=== PATIENT | male | born 1930 | race Caucasian/White ===

== ENCOUNTER 2018-02-22 21:36 | Inpatient (IN) | payer OTHER ==
[~2018-02-22] VITALS: Ht 167.6 cm; Wt 64.4 kg
[~2018-02-22 21:36] MED LIST: ALBMDI INH; ASPI-1155 PO; CLOP75TA32 PO; FERR159T2 PO; LEVO137T2 PO; NIFE60TA PO; OMEG1CAP48 PO; PRIM50TA27 PO; PRO40 PO; SPIRIVA INH
[2018-02-22 21:37] VITALS: BP_SYST 144
[2018-02-22] MEDS ORDERED: BLOO-1091 MC (21:57)
[2018-02-22] MEDS ORDERED: LIP10 PO (21:57)
[2018-02-22] MEDS ORDERED: IPRA0.2S6 INH (21:57)
[2018-02-22] MEDS ORDERED: ESCI10TA PO (21:57)
[2018-02-22] MEDS ORDERED: FLUT1DIS5 INH (21:57)
[2018-02-22] MEDS ORDERED: LEVO112T5 PO (21:57)
[2018-02-22] MEDS ORDERED: CARB-61 PO (21:57)
[2018-02-22] MEDS ORDERED: SPIRIVA INH (21:57)
[2018-02-22] MEDS ORDERED: IPRATROPIUM/ALBUTEROL SULFATE 3 ML AMPUL.NEB INH ONE (22:00)
[2018-02-22] MEDS ORDERED: NACL 0.9% 1,000 ML IV ONE ×2 (22:00→23:15)
[2018-02-22] MEDS ORDERED: methylPREDNISolone SOD SUCC/PF 62.5 MG/ML VIAL IVP ONE (22:00)
[2018-02-22] MEDS ORDERED: ACETAMINOPHEN 500 MG TABLET PO ONE (22:15)
[2018-02-22 22:24] LABS: BASOPHILS # (AUTO) 0.1 K/uL (0.0-0.2); BASOPHILS % (AUTO) 0.8 % (0.0-2.0); EOSINOPHILS # (AUTO) 0.7 K/uL (0.0-0.4); EOSINOPHILS % (AUTO) 9.6 % (0.0-4.0); HEMATOCRIT 34.9 % (36-54); HEMOGLOBIN 11.9 g/dL (14.0-18.0); LYMPHOCYTES # (AUTO) 1.6 K/uL (1.0-5.5); LYMPHOCYTES % (AUTO) 21.5 % (20.5-51.5); MEAN CORPUSCULAR HEMOGLOBIN 30 pg (27-31); MEAN CORPUSCULAR HGB CONC 34 % (32-36); MEAN CORPUSCULAR VOLUME 88 fL (79.0-98.0); MONOCYTES # (AUTO) 0.9 K/uL (0.0-1.0); MONOCYTES % (AUTO) 12.7 % (1.7-9.3); NEUTROPHILS % (AUTO) 55.4 % (40.0-70.0); PLATELET COUNT (AUTO) 293 K/uL (130-430); RED BLOOD CELL COUNT(AUTO) 3.99 MIL/uL (4.2-6.2); RED CELL DISTRIBUTION WIDTH 12.8 % (9.0-15.0); WHITE BLOOD COUNT (AUTO) 7.3 K/uL (4.8-10.8)
[2018-02-22 22:51] LABS: ANION GAP 10 (5-15); CALCIUM 8.5 mg/dL (8.4-11.0); CHLORIDE 106 mmol/L (98-107); CREATININE 1.76 mg/dL (0.55-1.30); GLUCOSE 124 mg/dL (70-99); POTASSIUM 4.8 mmol/L (3.5-5.1); SODIUM SERUM 139 mmol/L (136-145); UREA NITROGEN, BLOOD 26 mg/dL (8-21)
[2018-02-22 22:57] LABS: ALANINE AMINOTRANSFERASE 18 U/L (12-78); ALBUMIN 2.8 g/dL (3.4-4.8); ASPARTATE AMINOTRANSFERASE 19 U/L (10-37); TOTAL BILIRUBIN 0.3 mg/dL (0.0-1.0)
[2018-02-22 22:57] LABS: BILIRUBIN,URINE NEGATIVE (NEGATIVE); BLOOD, URINE NEGATIVE (NEGATIVE); CLARITY/URINE CLEAR (CLEAR); COLOR,URINE YELLOW (YELLOW); GLUCOSE,URINE NEGATIVE (NEGATIVE); KETONES,URINE NEGATIVE (NEGATIVE); LEUKOCYTE ESTERASE ,URINE NEGATIVE (NEGATIVE); NITRITE, URINE NEGATIVE (NEGATIVE); PROTEIN URINE TRACE (NEGATIVE); UROBILINOGEN,URINE 0.2 (0.2-1.0)
[2018-02-22] MEDS ORDERED: PROMETHAZINE 6.25 MG/ CODEINE 10 MG/ 5 ML PO ONE (23:15)
[2018-02-23 00:42] VITALS: BP_SYST 114
[2018-02-23 01:35] VITALS: BP_SYST 102
[2018-02-23] MEDS: methylPREDNISolone SOD SUCC/PF 62.5 MG/ML VIAL IVP SCH ×3 (05:28→21:32)
[2018-02-23] MEDS: IPRATROPIUM BROM 0.5 MG/2.5 ML VIAL.NEB (ATROVENT) INH PRN ×2 (07:26→10:31)
[2018-02-23] MEDS: ALBUTEROL SULFATE 0.083% 2.5 MG/3 ML VIAL.NEB INH PRN ×2 (07:26→10:31)
[2018-02-23 08:00] VITALS: BP_SYST 142
[2018-02-23] MEDS ORDERED: ESCITALOPRAM OXALATE 10 MG TABLET PO SCH (09:00)
[2018-02-23] MEDS ORDERED: FLUTICASONE 500 mCg/SALMETEROL 50 mCg DISKUS W.DEV INH SCH (09:00)
[2018-02-23] MEDS ORDERED: DEXTROSE 50% JECT 50 ML DISP.SYRIN IVP PRN (09:15)
[2018-02-23] MEDS: ATORVASTATIN 10 MG TABLET PO SCH (09:34)
[2018-02-23] MEDS: PANTOPRAZOLE SODIUM 40 MG TAB PO SCH (09:35)
[2018-02-23] MEDS: CLOPIDOGREL BISULFATE 75 MG TABLET PO SCH (09:35)
[2018-02-23] MEDS: NIFEDIPINE 60 MG TABLET.SA (PROCARDIA XL 60 MG) PO SCH (09:35)
[2018-02-23] MEDS: INSULIN REGULAR, HUMAN 100 UNITS/ML, 10 ML VIAL (novoLIN R) SUBCUT PRN ×4 (09:42→23:15)
[2018-02-23] MEDS ORDERED: CITALOPRAM HYDROBROMIDE 20 MG TABLET PO ONE (10:15)
[2018-02-23] MEDS ORDERED: FLUTICASONE/VILANTEROL 1 EACH BLST.W.DEV INH ONE (10:15)
[2018-02-23] MEDS ORDERED: LEVOTHYROXINE SODIUM 0.112 MG TABLET PO ONE (10:30)
[2018-02-23] MEDS: CARBIDOPA/LEVODOPA 25/100 MG TABLET PO SCH ×2 (11:05→21:30)
[2018-02-23 12:00] VITALS: BP_SYST 149
[2018-02-23] MEDS: IPRATROPIUM/ALBUTEROL SULFATE 3 ML AMPUL.NEB INH SCH ×3 (15:13→23:00)
[2018-02-23 16:00] VITALS: BP_SYST 147
[2018-02-23 19:15] VITALS: BP_SYST 155
[2018-02-24 00:35] VITALS: BP_SYST 138
[2018-02-24] MEDS: IPRATROPIUM/ALBUTEROL SULFATE 3 ML AMPUL.NEB INH SCH ×6 (03:00→23:27)
[2018-02-24] MEDS: methylPREDNISolone SOD SUCC/PF 62.5 MG/ML VIAL IVP SCH ×3 (05:57→21:17)
[2018-02-24] MEDS: LEVOTHYROXINE SODIUM 0.112 MG TABLET PO SCH (05:59)
[2018-02-24] MEDS: INSULIN REGULAR, HUMAN 100 UNITS/ML, 10 ML VIAL (novoLIN R) SUBCUT PRN ×3 (06:01→17:36)
[2018-02-24 06:53] LABS: BASOPHILS % (AUTO) 0.3 % (0.0-2.0); EOSINOPHILS % (AUTO) 0.2 % (0.0-4.0); HEMATOCRIT 36.8 % (36-54); HEMOGLOBIN 12.4 g/dL (14.0-18.0); LYMPHOCYTES # (AUTO) 0.6 K/uL (1.0-5.5); LYMPHOCYTES % (AUTO) 5.8 % (20.5-51.5); MEAN CORPUSCULAR HEMOGLOBIN 30 pg (27-31); MEAN CORPUSCULAR HGB CONC 34 % (32-36); MEAN CORPUSCULAR VOLUME 90 fL (79.0-98.0); MONOCYTES # (AUTO) 0.4 K/uL (0.0-1.0); MONOCYTES % (AUTO) 4.2 % (1.7-9.3); NEUTROPHILS # (AUTO) 8.8 K/uL (1.8-7.7); NEUTROPHILS % (AUTO) 89.5 % (40.0-70.0); PLATELET COUNT (AUTO) 308 K/uL (130-430); RED BLOOD CELL COUNT(AUTO) 4.09 MIL/uL (4.2-6.2); RED CELL DISTRIBUTION WIDTH 12.9 % (9.0-15.0); WHITE BLOOD COUNT (AUTO) 9.8 K/uL (4.8-10.8)
[2018-02-24 07:04] LABS: ANION GAP 10 (5-15); CALCIUM 8.8 mg/dL (8.4-11.0); CHLORIDE 109 mmol/L (98-107); CREATININE 1.77 mg/dL (0.55-1.30); GLUCOSE 187 mg/dL (70-99); POTASSIUM 4.9 mmol/L (3.5-5.1); SODIUM SERUM 145 mmol/L (136-145); UREA NITROGEN, BLOOD 29 mg/dL (8-21)
[2018-02-24 08:00] VITALS: BP_SYST 154
[2018-02-24] MEDS: FLUTICASONE/VILANTEROL 1 EACH BLST.W.DEV INH SCH (09:11)
[2018-02-24] MEDS: PANTOPRAZOLE SODIUM 40 MG TAB PO SCH (09:12)
[2018-02-24] MEDS: CLOPIDOGREL BISULFATE 75 MG TABLET PO SCH (09:12)
[2018-02-24] MEDS: CITALOPRAM HYDROBROMIDE 20 MG TABLET PO SCH (09:12)
[2018-02-24] MEDS: ATORVASTATIN 10 MG TABLET PO SCH (09:12)
[2018-02-24] MEDS: CARBIDOPA/LEVODOPA 25/100 MG TABLET PO SCH ×2 (09:12→21:17)
[2018-02-24] MEDS: NIFEDIPINE 60 MG TABLET.SA (PROCARDIA XL 60 MG) PO SCH (09:12)
[2018-02-24 12:12] VITALS: BP_SYST 168
[2018-02-24] MEDS: cloNIDine HCL 0.1 MG TABLET PO PRN (12:38)
[2018-02-24 16:36] VITALS: BP_SYST 157
[2018-02-24 20:00] VITALS: BP_SYST 154
[2018-02-24] MEDS ORDERED: LEVOFLOXACIN 500 MG/D5W 100 ML IV SCH (20:00)
[2018-02-25 00:51] VITALS: BP_SYST 147
[2018-02-25] MEDS: INSULIN REGULAR, HUMAN 100 UNITS/ML, 10 ML VIAL (novoLIN R) SUBCUT PRN ×4 (06:12→23:47)
[2018-02-25] MEDS: methylPREDNISolone SOD SUCC/PF 62.5 MG/ML VIAL IVP SCH ×3 (06:13→21:30)
[2018-02-25] MEDS: LEVOTHYROXINE SODIUM 0.112 MG TABLET PO SCH (06:15)
[2018-02-25] MEDS: IPRATROPIUM/ALBUTEROL SULFATE 3 ML AMPUL.NEB INH SCH ×5 (07:00→23:00)
[2018-02-25 08:00] VITALS: BP_SYST 159
[2018-02-25] MEDS: FLUTICASONE/VILANTEROL 1 EACH BLST.W.DEV INH SCH (08:40)
[2018-02-25] MEDS: ATORVASTATIN 10 MG TABLET PO SCH (08:40)
[2018-02-25] MEDS: CARBIDOPA/LEVODOPA 25/100 MG TABLET PO SCH ×2 (08:41→21:30)
[2018-02-25] MEDS: NIFEDIPINE 60 MG TABLET.SA (PROCARDIA XL 60 MG) PO SCH (08:41)
[2018-02-25] MEDS: PANTOPRAZOLE SODIUM 40 MG TAB PO SCH (08:42)
[2018-02-25] MEDS: CLOPIDOGREL BISULFATE 75 MG TABLET PO SCH (08:42)
[2018-02-25] MEDS: CITALOPRAM HYDROBROMIDE 20 MG TABLET PO SCH (08:42)
[2018-02-25 11:02] VITALS: BP_SYST 159
[2018-02-25 15:01] VITALS: BP_SYST 158
[2018-02-25 20:00] VITALS: BP_SYST 149
[2018-02-26] VITALS: BP_SYST 161
[2018-02-26] MEDS: cloNIDine HCL 0.1 MG TABLET PO PRN ×2 (00:19→11:16)
[2018-02-26 00:50] VITALS: BP_SYST 180
[2018-02-26] MEDS: IPRATROPIUM/ALBUTEROL SULFATE 3 ML AMPUL.NEB INH SCH ×2 (03:00→07:00)
[2018-02-26 04:03] VITALS: BP_SYST 148
[2018-02-26] MEDS: methylPREDNISolone SOD SUCC/PF 62.5 MG/ML VIAL IVP SCH (06:03)
[2018-02-26] MEDS: LEVOTHYROXINE SODIUM 0.112 MG TABLET PO SCH (06:03)
[2018-02-26] MEDS: INSULIN REGULAR, HUMAN 100 UNITS/ML, 10 ML VIAL (novoLIN R) SUBCUT PRN (06:05)
[2018-02-26] MEDS: CARBIDOPA/LEVODOPA 25/100 MG TABLET PO SCH (08:00)
[2018-02-26] MEDS: CLOPIDOGREL BISULFATE 75 MG TABLET PO SCH (08:00)
[2018-02-26] MEDS: ATORVASTATIN 10 MG TABLET PO SCH (08:00)
[2018-02-26] MEDS: NIFEDIPINE 60 MG TABLET.SA (PROCARDIA XL 60 MG) PO SCH (08:01)
[2018-02-26] MEDS: CITALOPRAM HYDROBROMIDE 20 MG TABLET PO SCH (08:01)
[2018-02-26] MEDS: PANTOPRAZOLE SODIUM 40 MG TAB PO SCH (08:01)
[2018-02-26] MEDS: FLUTICASONE/VILANTEROL 1 EACH BLST.W.DEV INH SCH (08:02)
[2018-02-26 08:10] VITALS: BP_SYST 154
[2018-02-26 10:35] VITALS: BP_SYST 154
[2018-02-26 11:15] VITALS: BP_SYST 165
== END 2018-02-26 11:31 | disposition home or self-care (01) | DRG 193 ==
LOC: SED 21:36 → STU 02-23 00:04 → SMU 02-25 16:40
PROVIDERS: ADMIT Internal Medicine Hospice and Palliative Medicine; ATTEND Internal Medicine Hospice and Palliative Medicine
DX: J18.9 Pneumonia, unspecified organism (principal); J96.20 Acute and chronic respiratory failure, unspecified whether with hypoxia or hypercapnia; J44.1 Chronic obstructive pulmonary disease with (acute) exacerbation; J44.0 Chronic obstructive pulmonary disease with (acute) lower respiratory infection; N17.9 Acute kidney failure, unspecified; G20 Parkinson's disease; E11.22 Type 2 diabetes mellitus with diabetic chronic kidney disease; E11.51 Type 2 diabetes mellitus with diabetic peripheral angiopathy without gangrene; I12.9 Hypertensive chronic kidney disease with stage 1 through stage 4 chronic kidney disease, or unspecified chronic kidney disease; D64.9 Anemia, unspecified; N18.9 Chronic kidney disease, unspecified; G89.29 Other chronic pain; Z95.820 Peripheral vascular angioplasty status with implants and grafts; Z90.49 Acquired absence of other specified parts of digestive tract; Z99.81 Dependence on supplemental oxygen; Z87.891 Personal history of nicotine dependence; Z86.73 Personal history of transient ischemic attack (TIA), and cerebral infarction without residual deficits; Z88.1 Allergy status to other antibiotic agents; Z79.899 Other long term (current) drug therapy
CPT/HCPCS: 36415; 71045; 80048; 80053; 81003; 82962; 83605; 83880; 85025; 87040-TC; 93005; 94640; 94760; 96361; 96365; 96375; 99285; J1815; J1956; J2930; J7030; J7613; J7620